=== PATIENT | female | born 1980 | race Hispanic/Latino ===

== ENCOUNTER 2017-01-30 03:34 | Inpatient (IN) | payer OTHER ==
[~2017-01-30] VITALS: Ht 157.5 cm; Wt 61.7 kg
[2017-01-30 03:50] LABS: EOSINOPHIL (%) 1.8 % (0-5); EOSINOPHIL COUNT 0.2 K/uL (0-0.3); HEMATOCRIT 36.1 % (36.0-46.0); IMMATURE GRANULOCYTE (%) 0.4 % (0.0-0.7); IMMATURE GRANULOCYTE COUNT 0.1 K/uL; INSTRUMENT ABS NEUTROPHIL CT 7.6 K/uL; LYMPHOCYTE COUNT 3.3 K/uL (1.0-2.8); MCH 29.6 PG (29.0-34.0); MCHC 34.1 G/DL (30.0-36.0); MEAN PLAT.VOLUME 9.3 uM^3 (9.5-12.4); MONOCYTE (%) 5.5 % (3-12); MONOCYTE COUNT 0.7 K/uL (0-0.8); NEUTROPHIL (%) 64.2 % (45-76); NEUTROPHIL COUNT 7.6 K/uL (1.8-6.4); PLATELET COUNT 326 K/uL (156-360); RBC DIS.WIDTH-SD 41.3 % (39-53); RED BLOOD COUNT 4.15 M/uL (3.80-5.20); WHITE BLOOD COUNT 11.8 K/uL (4.1-10.2)
[2017-01-30 04:00] LABS: AMYLASE 80 IU/L (1-118); CHLORIDE 106 mEq/L (99-109); POTASSIUM 3.5 mEq/L (3.7-5.4); SODIUM 140 mEq/L (136-147)
[2017-01-30 04:02] LABS: GLUCOSE 103 mg/dL (70-99)
[2017-01-30 04:04] LABS: ANION GAP 10 MEQ/L (2-14)
[2017-01-30 04:05] LABS: SERUM ETHYL ALCOHOL 132 mg/dL
[2017-01-30 04:07] LABS: UREA NITROGEN (BUN) 14 mg/dL (9-23)
[2017-01-30 04:09] LABS: LIPASE 17 U/L (1.0-51.0)
[2017-01-30 04:12] LABS: GFR ESTIMATE (CALCULATED) > 59 mL/min/
[2017-01-30 04:15] LABS: QUANTITATIVE HCG < 4.0 MIU/ML
[2017-01-30] MEDS ORDERED: PERCOCET 5/31 TABLET PO (05:42)
[2017-01-30 05:51] LABS: ADD MIUA? YES; BILIRUBIN NEGATIVE; BLOOD LARGE; COLOR STRAW ((YELLOW)); GLUCOSE (STRIP) NEGATIVE; KETONES NEGATIVE; LEUKOCYTES NEGATIVE; NITRITE NEGATIVE; PROTEIN (STRIP) NEGATIVE; SPECIFIC GRAVITY 1.026 (1.000-1.030); UROBILINOGEN 0.2 MG/DL (0.2-1.0)
[2017-01-30 06:02] LABS: BACTERIA RARE /HPF; EPITHELIAL CELLS RARE /HPF; MUCUS NONE SEEN /LPF; RED BLOOD CELLS 0-5 /HPF (0-5); UCUL ADDED? NO; WHITE BLOOD CELLS 0-5 /HPF (0-5)
[2017-01-30 06:12] LABS: ADD MEDTOX COMMENT Y; AMPHETAMINE NEGATIVE (500 ng/mL); BARBITURATES NEGATIVE (200 ng/mL); BENZODIAZEPINES NEGATIVE (150 ng/mL); COCAINE NEGATIVE (150 ng/mL); INTERNAL CONTROLS VALID? YES; METHADONE NEGATIVE (200 ng/mL); METHAMPHETAMINE NEGATIVE (500 ng/mL); OPIATES (MORPHINE) NEGATIVE (100 ng/mL); OXYCODONE NEGATIVE (100 ng/mL); PHENCYCLIDINE NEGATIVE (25 ng/mL); PROPOXYPHENE NEGATIVE (300 ng/mL); THC CANNABINOIDS PRESUMPTIVE POSITIVE (50 ng/mL); TRICYCLIC ANTIDEPRESSANTS NEGATIVE (300 ng/mL)
[2017-01-30] MEDS ORDERED: VITAMIN D31000 UNI2 PO (10:10)
[2017-01-30] MEDS ORDERED: VITAMIN E200 UNI2 PO (10:10)
[2017-01-30] MEDS ORDERED: CYANOCOBALAM1000 MCG PO (10:11)
[2017-01-30 10:35] VITALS: BP 120/77
[2017-01-30 16:45] VITALS: BP 125/67
[2017-01-30 19:52] VITALS: BP 118/70
[2017-01-30 23:04] VITALS: BP 113/66
[2017-01-31 05:16] VITALS: BP 101/59
[2017-01-31 07:28] VITALS: BP 105/57
[2017-01-31 10:51] VITALS: BP 122/67
[2017-01-31 15:53] VITALS: BP 121/67
[2017-01-31] MEDS ORDERED: PERCOCET 5/31 TABLET PO (15:54)
== END 2017-01-31 17:42 | disposition home or self-care (01) | DRG 494 ==
LOC: TRA 03:34 → EDOF 08:33 → 3EAST 08:33 → EDOF 08:38 → 3EAST 10:15
PROVIDERS: Emergency Medicine
DX: S82.292A Other fracture of shaft of left tibia, initial encounter for closed fracture (principal); S82.492A Other fracture of shaft of left fibula, initial encounter for closed fracture; Y92.488 Other paved roadways as the place of occurrence of the external cause; E04.1 Nontoxic single thyroid nodule; F10.129 Alcohol abuse with intoxication, unspecified; V47.5XXA Car driver injured in collision with fixed or stationary object in traffic accident, initial encounter; S01.512A Laceration without foreign body of oral cavity, initial encounter; S82.832A Other fracture of upper and lower end of left fibula, initial encounter for closed fracture; R40.2412 Glasgow coma scale score 13-15, at arrival to emergency department; S00.93XA Contusion of unspecified part of head, initial encounter; S20.211A Contusion of right front wall of thorax, initial encounter; S20.212A Contusion of left front wall of thorax, initial encounter; Y90.6 Blood alcohol level of 120-199 mg/100 ml
CPT/HCPCS: 70450; 71260; 72125; 72129; 72132; 73590; 73600; 74177; 76000; 80048; 81003; 82150; 83690; 84702; 84999; 85025; 86900; 86901; 99281; 99285; C1713; G0480; J0131; J0690; J1100; J1170; J1650; J2175; J2270; J2405; J2765; J3010; J7120